=== PATIENT | female | born 1980 | race African-American/Black ===

== ENCOUNTER 2020-10-19 21:27 | Emergency (ER) | payer SELFPAY ==
[2020-10-19] MEDS ORDERED: Ketorolac 30 MG/ML SDV IVPUSH ONE (21:47)
[2020-10-19] MEDS ORDERED: Ondansetron 4 MG/2 ML SDV IVPUSH ONE (21:47)
[2020-10-19] MEDS ORDERED: Sodium Chloride 0.9% 1,000 ML IV ONE (21:47)
--- NOTE | 2020-10-19 21:58 | EDM.PDOC ---
ED HPI GENERAL MEDICAL PROBLEM - General Chief Complaint: Headache Stated Complaint: MIGRAINE Time Seen by Provider: 10/19/20 21:50 Source of Information: Reports: Patient History Limitations: Reports: No Limitations - History of Present Illness INITIAL COMMENTS - FREE TEXT/NARRATIVE: This 40 yo female patient reports to the ED due to a migraine headache. The patient reports she does have a history of migraine headaches, but is currently not on any medications for her headaches. The patient reports she has tried over the counter medications with no symptom relief. The patient also reports some nausea due to her pain. 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 The patient reports no recent head trauma. The patient states she has not had a headache this bad for about 1 year. The patient does not see a neurologist for her headaches. Onset: Today Location: Reports: Head Quality: Reports: Ache, Sharp, Stabbing Severity: Severe Improves with: Reports: None Worsens with: Reports: None Context: Reports: Other Associated Symptoms: Reports: Headaches, Nausea/Vomiting Treatments [employer] AP[employer]ENTICE: Reports: Acetaminophen, Other Medication(s) Headache Pain Score (Numeric/FACES): 10 - Related Data Allergies Allergy/AdvReac Type Severity Reaction Status Date / Time No Known Allergies Allergy Verified 10/19/20 22:06 Home Meds: Home Meds . [No Known Home Meds] 10/19/20 [History] ED ROS GENERAL - Review of Systems Review Of Systems: Comprehensive ROS is negative, except as noted in HPI. - Physical Exam Exam: See Below Exam Limited By: No Limitations General Appearance: Alert, WD/WN, Moderate Distress, Obese Eye Exam: Bilateral Eye: EOMI, Normal Inspection, PERRL, Other (Light sensitivity) Ears: Normal External Exam, Normal Canal, Hearing Grossly Normal, Normal TMs Nose: Normal Inspection, Normal Mucosa, No Blood Throat/Mouth: Normal Inspection, Normal Lips, Normal Teeth, Normal Gums, Normal Oropharynx, Normal Voice, No Airway Compromise Head Exam: Atraumatic, Normocephalic Neck: Normal Inspection, Supple, Non-Tender, Full Range of Motion Respiratory/Chest: No Respiratory Distress, Lungs Clear, Normal Breath Sounds, No Accessory Muscle Use, Chest Non-Tender GI/Abdominal: Normal Bowel Sounds, Soft, Non-Tender, No Organomegaly, No Distention, No Abnormal Bruit, No Mass (Female) Exam: Deferred Rectal (Female) Exam: Deferred Neuro Exam (Abbreviated): Alert, Oriented, CN II-XII Intact, Normal Cognition, Normal Gait, Normal Reflexes, No Motor/Sensory Deficits Extremities: Normal Inspection, Normal Range of Motion, Non-Tender, No Pedal Edema, Normal Capillary Refill Psychiatric: Normal Affect, Normal Mood Skin Exam: Warm, Dry, Intact, Normal Color, No Rash Course - Vital Signs Last Recorded V/S: Last Vital Signs Temp 96.9 F 10/19/20 22:00 Pulse 64 10/19/20 22:00 Resp 20 10/19/20 22:00 BP 166/98 H 10/19/20 22:00 Pulse Ox 100 10/19/20 22:00 - Orders/Labs/Meds Meds: Medications Discontinued Medications Generic Name Dose Route Start Last Admin Trade Name Felipeq PRN Reason Stop Dose Admin Hydromorphone HCl 0.5 mg 10/19/20 22:45 10/19/20 22:52 Hydromorphone 0.5 Mg/0.5 Ml Syringe IVPUSH 10/19/20 22:46 0.5 mg ONETIME ONE Administration Sodium Chloride 1,000 mls @ 999 mls/hr 10/19/20 21:47 10/19/20 22:14 Normal Saline IV 10/19/20 22:47 999 mls/hr .BOLUS ONE Administration Ketorolac Tromethamine 30 mg 10/19/20 21:47 10/19/20 22:12 Ketorolac 30 Mg/Ml Sdv IVPUSH 10/19/20 21:48 30 mg ONETIME ONE Administration Ondansetron HCl 4 mg 10/19/20 21:47 10/19/20 22:12 Ondansetron 4 Mg/2 Ml Sdv IVPUSH 10/19/20 21:48 4 mg ONETIME ONE Administration - Re-Assessments/Exams Free Text/Narrative Re-Assessment/Exam: 10/19/20 23:14 The patient reports her headache is "much better" at this time. Departure - Departure Time of Disposition: 23:14 Disposition: Home, Self-Care 01 Condition: Fair Clinical Impression: Migraine - Discharge Information *PRESCRIPTION DRUG MONITORING PROGRAM REVIEWED*: Not Applicable *COPY OF PRESCRIPTION DRUG MONITORING REPORT IN PATIENT NORRIS: Not Applicable Instructions: Migraine Headache, [id number] Forms: ED Department Discharge Care Plan Goals: The patient was advised of the examination results during the visit. The patient was given IV fluids, IV Zofran, IV Toradol and IV Dilaudid during the visit. The patient was encouraged to increase her oral fluid intake. If the patient has any additional symptoms or concerns, the patient should either return to the emergency department or visit her primary care facility. Sepsis Event Note (ED) - Focused Exam Vital Signs: Vital Signs Temp Pulse Resp BP Pulse Ox 10/19/20 22:00 96.9 F 64 20 166/98 H 100
[2020-10-19] MEDS ORDERED: HYDROmorphone 0.5 MG/0.5 ML Syringe IVPUSH ONE (22:45)
== END 2020-10-19 23:35 | disposition home or self-care (01) ==
LOC: DL.ED 21:27
DX: G43.909 Migraine, unspecified, not intractable, without status migrainosus (principal)
CPT/HCPCS: 96374; 96375; 99283; 99283-25; J1170; J1885; J2405; J7030

== ENCOUNTER 2020-11-09 13:04 | Emergency (ER) | payer SELFPAY ==
--- NOTE | 2020-11-09 13:50 | EDM.PDOC ---
ED HPI GENERAL MEDICAL PROBLEM - General Chief Complaint: Upper Extremity Injury/Pain Stated Complaint: right wrist injury Time Seen by Provider: 11/09/20 13:30 Source of Information: Reports: Patient History Limitations: Reports: No Limitations - History of Present Illness INITIAL COMMENTS - FREE TEXT/NARRATIVE: Pt is here for right wrist injury. 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 She was able to complete her shift, but it was painful. She denies any numbness or tingling in the fingers. It is painful to rotate the arm. She is right handed. No previous injury. Onset: Today Duration: Hour(s): Location: Reports: Upper Extremity, Right Quality: Reports: Ache, Sharp Severity: Moderate Improves with: Reports: Rest Worsens with: Reports: Movement Associated Symptoms: Reports: No Other Symptoms Treatments CHEMIST: Reports: Acetaminophen, NSAIDS Right Wrist Pain Score (Numeric/FACES): 8 - Related Data Allergies Allergy/AdvReac Type Severity Reaction Status Date / Time No Known Allergies Allergy Verified 11/09/20 13:16 Home Meds: Home Meds . [No Known Home Meds] 10/19/20 [History] Past Medical History - Past Health History Medical/Surgical History: Denies Medical/Surgical History HEENT History: Reports: None Cardiovascular History: Reports: Heart Murmur Respiratory History: Reports: None Gastrointestinal History: Reports: None Genitourinary History: Reports: None [place] History: Reports: None Musculoskeletal History: Reports: None Neurological History: Reports: None Psychiatric History: Reports: None Endocrine/Metabolic History: Reports: None Hematologic History: Reports: None Immunologic History: Reports: None Oncologic (Cancer) History: Reports: None Dermatologic History: Reports: None - Infectious Disease History Infectious Disease History: Reports: Chicken Pox - Past Surgical History Head Surgeries/Procedures: Reports: None Female Surgical History: Reports: D&C, Tubal Ligation Social & Family History - Tobacco Use Tobacco Use Status *Q: Current Every Day Tobacco User Years of Tobacco use: 24 Packs/Tins Daily: 0.5 Second Hand Smoke Exposure: No - Caffeine Use Caffeine Use: Reports: Coffee, Energy Drinks, Soda - Recreational Drug Use Recreational Drug Use: No Review of Systems - Review of Systems Review Of Systems: Comprehensive ROS is negative, except as noted in HPI. ED EXAM, GENERAL - Physical Exam Exam: See Below Exam Limited By: No Limitations General Appearance: Alert, WD/WN, No Apparent Distress Eye Exam: Bilateral Eye: Normal Inspection Ears: Normal External Exam Throat/Mouth: Normal Voice, No Airway Compromise Head: Atraumatic, Normocephalic Neck: Supple, Full Range of Motion Respiratory/Chest: No Respiratory Distress, Lungs Clear, Normal Breath Sounds, No Accessory Muscle Use Cardiovascular: Normal Peripheral Pulses, Regular Rate, Rhythm, No Murmur GI/Abdominal: Soft, Non-Tender (Female) Exam: Deferred Rectal (Female) Exam: Deferred Back Exam: Normal Inspection, Full Range of Motion Extremities: Normal Inspection, Normal Capillary Refill, Joint Swelling (mild swelling right wrist, tender to palpation over dorsal wrist, no tenderness to hook of hamate or snuff box) Neurological: Alert, Oriented, Normal Cognition, Normal Gait, No Motor/Sensory Deficits Psychiatric: Normal Affect, Normal Mood Skin Exam: Warm, Dry, Intact, Normal Color, No Rash Lymphatic: No Adenopathy Course - Vital Signs Last Recorded V/S: Last Vital Signs Temp 97.1 F 11/09/20 13:12 Pulse 70 11/09/20 13:12 Resp 18 11/09/20 13:12 BP 120/87 11/09/20 13:12 Pulse Ox 100 11/09/20 13:12 - Orders/Labs/Meds Orders: Active Orders 24 hr Category Date Time Status Wrist Comp Min 3V Rt [CR] Urgent Exams 11/09/20 13:36 Ordered - Re-Assessments/Exams Free Text/Narrative Re-Assessment/Exam: reviewed xray with patient. wrist splint for comfort. continue OTC meds and ice therapy for symptomatic relief. Pt verbalized understanding. 11/09/20 13:59 Departure - Departure Time of Disposition: 14:01 Disposition: Home, Self-Care 01 Condition: Good Clinical Impression: Right wrist sprain Qualifiers: Encounter type: initial encounter Qualified Code(s): S63.501A - Unspecified sprain of right wrist, initial encounter - Discharge Information *PRESCRIPTION DRUG MONITORING PROGRAM REVIEWED*: Not Applicable *COPY OF PRESCRIPTION DRUG MONITORING REPORT IN PATIENT NORRIS: Not Applicable Instructions: Wrist Sprain With [facility] Forms: ED Department Discharge Additional Instructions: Wrist splint for comfort Continue over the counter medications and ice therapy for pain relief Follow up with PCP in 5-7 days, or sooner if needed Sepsis Event Note (ED) - Evaluation Sepsis Screening Result: No Definite Risk - Focused Exam Vital Signs: Vital Signs Temp Pulse Resp BP Pulse Ox 11/09/20 13:12 97.1 F 70 18 120/87 100 - My Orders Last 24 Hours: My Active Orders 11/09/20 13:36 Wrist Comp Min 3V Rt [CR] Urgent - Assessment/Plan Last 24 Hours: My Active Orders 11/09/20 13:36 Wrist Comp Min 3V Rt [CR] Urgent
--- NOTE | 2020-11-09 14:09 | CR ---
PROCEDURE INFORMATION: Exam: XR Right Wrist Exam date and time: 11/09/2020 1:43 PM Age: 40 years old Clinical indication: Other: Wrist injury; Additional info: Wirst injury TECHNIQUE: Imaging protocol: XR Right wrist. Views: 3 or more views. COMPARISON: No relevant prior studies available. FINDINGS: Bones/joints: There is no evidence of acute fracture. There is no evidence of joint malalignment or dislocation. Old avulsion fracture of the ulnar styloid present. Soft tissues: There are no soft tissue masses or fluid collections. IMPRESSION: 1. No evidence of acute fracture. 2. No evidence of acute dislocation. 3. There are no soft tissue masses or fluid collections.
== END 2020-11-09 14:14 | disposition home or self-care (01) ==
LOC: DL.ED 13:04
DX: S63.501A Unspecified sprain of right wrist, initial encounter (principal); X50.1XXA Overexertion from prolonged static or awkward postures, initial encounter; Y99.0 Civilian activity done for income or pay
CPT/HCPCS: 73110-RT; 99283; 99283-25